=== PATIENT | female | born 1950 ===

== ENCOUNTER 2024-12-20 03:55 | Outpatient (CLI) | payer MEDICARE, SELFPAY ==
--- NOTE | 2024-12-20 14:08 | DI.US_ITS ---
APPROVED REPORT Exam: Exercise Treadmill Patient Location: Out-Patient Room/Bed: Stress Nurse: Jillian Perdomo RN Ordering Provider:BRIAN RECINOS, Contact Number: [phone] BMI: 27.12 Baseline Rhythm: Sinus Bradycardia Indications: ABNL heart beat Medical History Medical History: SHANNON, panic attack, HTN, stage 3 CKD, severe episode of major depressive disorder, mixed HLD Cardiac Medications: Bupropion, levothyroxine, losartan, propranolol, vanlafaxine Allergies: environmental Cardiac Risk Factors: Family, hx, HTN, HLD Previous Cardiac Procedures: None Pretest Chest Pain Characteristics: None Exercise History: Indeterminate Physical Disabilities: None Lung Sounds: Clear to auscultation Heart Sounds: Bradycardia Stress Test Details Test: Exercise stress testing was performed using a Jose protocol. Rest Stress HR Resting HR Supine: 52 bpm Max Heart Rate (APMHR): 147 bpm Resting HR Standin bpm Target HR (85% APMHR): 125 bpm Max HR Achieved: 100 bpm % of APMHR: 68 Recovery HR: 57 bpm HR response to stress: Blunted HR response to stress BP Resting BP Supine: 148/78 mmHg Resting BP Standin/72 mmHg Max BP: 204/88 mmHg Recovery BP: 154/86 mmHg BP response to stress: Abnormal hypertensive response to stress. ECG Resting ECG: Sinus Bradycardia Stress ECG: Sinus Tachycardia ST Change: Nondiagnostic low heart rate Recovery ECG: Sinus Rhythm Recovery ST Change: Nondiagnostic low heart rate Recovery Arrhythmia: Occasional PAC's Clinical Reason for Termination: AGUILAR, patient request to stop Stress Symptoms: AGUILAR Exercise duration: 06 min20 sec Highest Stage Reached: Stage 2: 2.5 mph at 12% grade. Exercise capacity: 7.54 METs Angina Score: None Rate Pressure Product: [id number] Stress ECG Conclusion 1. Resting electrocardiogram showed low voltage, late transition 2. Patient exercised on the Jose protocol completed workload of 7 METS 3. Hypertensive blood pressure response to exercise. Blunted heart rate response to exercise. The patient achieved 68% of maximal predicted heart rate for age 4. The electrocardiographic portion of the test was nondiagnostic due to inadequate heart Stress Test Summary STAGE Time (mins) Speed (mph) Grade (%) HR BP SpO2 SYMPTOMS METS Supine 52 148/78 91% Standing 59 142/72 1 3 1.7 10 78 148/88 92% 4.5 2 6 2.5 12 97 Mod SOB 7 1 min recovery 72 204/88 Mod SOB 3 min recovery 64 198/92 95% 6 min recovery 57 154/84 All symptoms resolved. Patient requested to stop treadmill r/t mod SOB and fatigue. All symptoms resolved by test end. Patient left ambulatory in no apparent distress. MPI Conclusion This is a stress echocardiogram Resting echo showed normal left ventricular function with an ejection fraction of 55 to 60%, normal wall motion Postexercise echocardiogram showed augmented contractility with improvement in EF to 70% and no segmental wall motion abnormalities The echocardiographic portion of the test did not demonstrate any myocardial ischemia
== END 2024-12-20 04:15 ==
LOC: DI 03:55
PROVIDERS: PCP Nurse Practitioner Family; Visit Provider Internal Medicine Cardiovascular Disease
DX: R00.8 Other abnormalities of heart beat (principal)
CPT/HCPCS: 93306; 93350; 93017